=== PATIENT | female | born 1960 | race Caucasian/White ===

== ENCOUNTER 2017-03-02 11:45 | Emergency (ER) | payer MEDICAID ==
[~2017-03-02] VITALS: Ht 154.9 cm; Wt 54.0 kg
[2017-03-02] MEDS ORDERED: MIRTAZAPINE45 MG PO (12:04)
[2017-03-02] MEDS ORDERED: DIAZEPAM10 M1 PO (12:04)
[2017-03-02] MEDS ORDERED: VENTOLIN H0.09 MG/Ac IH (12:04)
[2017-03-02] MEDS ORDERED: ESCITALOPRAM20 MG PO (12:04)
[2017-03-02] MEDS ORDERED: CYCLOBENZAPRINE10 M1 PO (12:05)
[2017-03-02 12:25] LABS: HEMOGLOBIN 15.8 g/dL (12.2-16.2); LYMPH # 2.8 K/mm3 (0.7-4.5); LYMPH % 49.7 % (10-50.0)
--- NOTE | 2017-03-02 12:33 | Emergency Room Report ---
History of Present Illness Time Seen by 1214 Presenting Problem in Triage Pt arrived:Walked Presenting Problem:PT REPORTS DIFFICULTY BREATHING THAT HAS BEEN GOING ON SINCE DECEMBER OF THIS YEAR. PT STATES HAS BEEN SEEN AT [facility] TWICE AND WAS DIAGNOSED WITH BRONCHITIS AND TREATED WITH ANTIBIOTICS. 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 N Clinical Suspician of Infection? N Mental Status: 1 - Regular (Normal Baseline) Sepsis Risk:Low Sepsis Risk Have you (or family members/close friends) recently traveled outside the [place]? N If Yes, where/when: Have you had exposure to infectious disease within the past month? N TB? Other? Specify: Source patient, RN notes reviewed, family, RN/MD Exam Limitations no limitations Comment This is a 56-year-old female patient presenting to the emergency room with shortness of breath and nonproductive cough for the past 2-3 days. The patient has had multiple similar episodes in the past. She was seen twice at the [facility] over the past few months, prescribed Medrol Dosepak, Zyrtec, Ventolin MDI. Patient has quit smoking approximately 2 weeks ago. She denies any productive cough, chest pain, fever, recent travel or exposure to sick contacts. Patient has not been diagnosed with emphysema or asthma. ALLERGIES Coded Allergies: No Known Allergies (03/02/17) Home Medications Reported Medications Albuterol Sulfate (Ventolin Hfa) 0.09 MG IH Q4HP PRN SOA #18 Escitalopram Oxalate 20 MG PO DAILY #30 Mirtazapine 45 MG PO QHS #30 Diazepam 10 MG PO BID #75 Cyclobenzaprine Hcl 10 MG PO PRN PRN MUSCLE PAIN #60 History Medical History General CAD? No Angina: No [place]: No Hypertension? No Hyperlipidemia? Yes CHF? No DVT? No PE? No COPD? No Asthma? No Anemia? No GERD? No Gastric ulcers? No GI Bleed? No Hernia? No Thyroid Problems? No Hypothyroidism? No CVA? No Seizures? No Diabetes? No Renal Insuffiency? No End Stage Renal Disease? No UTI? No Stones? No GB Disease: No Nephritic Syndrome? No Asplenia? No Hepatitis? No Sickle Cell Disease? No Arthritis? No Migraines? No Cataracts? No Glaucoma? No MRSA? No HIV? No TB? No Anxiety? Yes Depression? No Cancer? No More? 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 No: respiratory distress. Lung Sounds anterior: wheezing. posterior: wheezing. bilateral: wheezing. 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 No Comment Upon reevaluation patient appears medically stable, clinically improving, minimally symptomatic. Advised patient that she has early stages of emphysema, was discharged home on steroids, antibiotics, same short-acting beta agonist. She will greatly benefit from introducing a steroid inhaler as well, Pulmicort. Patient advised to follow-up with digital associate, Dr. Leatha Sparks, at her earliest convenience. Results/Orders Laboratory Tests 03/02/17 1212: Lactic Acid 0.8 03/02/17 1212: Sodium 139, Potassium 4.0, Chloride 103, Carbon Dioxide 31, BUN 7, Creatinine 0.9, Estimated Creat Clear 59, Estimated GFR (MDRD) 65, Glucose 96, Calcium 8.8, Total Bilirubin 0.4, AST 23, ALT 24, Alkaline Phosphatase 133 H, Total Protein 6.7, Albumin 3.5, Globulin 3.2, Albumin/Globulin Ratio 1.1, WBC 5.6, RBC 4.64, Hgb 15.8, Hct 46.7, MCV 100.7 H, RDW 12.7, Plt Count 319, MPV 5.3 L, Gran % 34.6 L, Gran # 1.9, Lymphocytes % 49.7, Monocytes % 3.7, Eosinophils % 11.1, Basophils % 0.9, Lymphocytes # 2.8, Monocytes # 0.2, Eosinophils # 0.6 H, Basophils # 0.1, PUBS MCHC 33.7, MCH 33.9 H Current Medication Orders Sig/Karishma Start time Last Medication Dose Route Stop Time Status Admin Ceftriaxone Sodium 0 .STK-MED ONE 03/02 1304 DC IV Methylprednisolone 0 .STK-MED ONE 03/02 1304 DC Sodium Succinate .ROUTE Sodium Chloride 50 ML .STK-MED ONE 03/02 1304 DC IV Ceftriaxone Sodium 1 GM ONCE ONE 03/02 1245 DC 03/02 Sodium Chloride 50 ML IV 03/02 1314 1307 Methylprednisolone 125 MG ONCE ONE 03/02 1245 DC 03/02 Sodium Succinate IV 03/02 1246 1307 Sodium Chloride 1,000 ML .STK-MED ONE 03/02 1232 DC IV Albuterol/Ipratropium 3 ML ONCE ONE 03/02 1215 DC 03/02 INH 03/02 1216 1220 Sodium Chloride 10 ML PRN PRN 03/02 1215 DCD IV 03/03 1206 Sodium Chloride 1,000 ML .Q1H1M 03/02 1215 DC 03/02 IV 03/02 1315 1235 Sodium Chloride 10 ML PRN PRN 03/02 1215 DCD IV 03/03 1214 Orders Procedure Date/time Status RT REQUEST DUONEB 03/02 1206 Active IV SALINE LOCK 03/02 1206 Active CULTURE, BLOOD 03/02 1206 Active LACTIC ACID 03/02 1206 Complete CBC WITH AUTO DIFF 03/02 120 Complete CHEM 12 PROFILE 03/02 1206 Complete 12 LEAD EKG-BESSON (INITIAL) 03/02 UNK Active XRAY/CT/US XRAY/CT/US XRAY chest XR interpretation by reviewed by me Xray Results no infiltrates, normal heart size Departure Departure Time of Disposition 1240 Disposition DC Home or Self Care(routine) Clinical Impression Primary Impression: COPD with exacerbation Secondary Impressions: Acute exacerbation of chronic bronchitis Condition STABLE Referrals GODWIN DOHERTY,LEATHA Mccartney: Today after leaving ER Please call and schedule appointment Patient Instructions DI for Chronic Bronchitis, DI for Chronic Obstructive Pulmonary Disease Additional Instructions Please take the medications prescribed as directed, continue the Kobe DOHERTYI, follow-up with either the lung specialist in March as previously scheduled or with local digital associate, Dr. Leatha Sparks if able to see you sooner. Discharge Counseling Counseled pt/family regarding diagnosis, test results, medications/RX, home care, follow up needs Comment Please take the medications prescribed as directed, continue the Kobe MDI, follow-up with either the lung specialist in March as previously scheduled or with local digital associate, Dr. Leatha Sparks if able to see you sooner. Prescriptions Current Visit Scripts Methylprednisolone (Medrol Dose Saulo) 4 MG PO UD #1 SAULO TAKE DIRECTED ON PACKAGING Amoxicillin/Potassium Clav (Augmentin 875-125 Tablet) 1 EACH PO BID #20 TAB Budesonide (Pulmicort 90MCG Flexhaler) 2 PUFFS IH BID #1 INH Ref 2 ED Critical Care Critical Care No at 0142
--- NOTE | 2017-03-02 12:33 | Emergency Room Report ---
History of Present Illness Time Seen by 1214 Presenting Problem in Triage Pt arrived:Walked Presenting Problem:PT REPORTS DIFFICULTY BREATHING THAT HAS BEEN GOING ON SINCE DECEMBER OF THIS YEAR. PT STATES HAS BEEN SEEN AT [facility] TWICE AND WAS DIAGNOSED WITH BRONCHITIS AND TREATED WITH ANTIBIOTICS. 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 N Clinical Suspician of Infection? N Mental Status: 1 - Regular (Normal Baseline) Sepsis Risk:Low Sepsis Risk Have you (or family members/close friends) recently traveled outside the [place]? N If Yes, where/when: Have you had exposure to infectious disease within the past month? N TB? Other? Specify: Source patient, RN notes reviewed, family, RN/MD Exam Limitations no limitations Comment This is a 56-year-old female patient presenting to the emergency room with shortness of breath and nonproductive cough for the past 2-3 days. The patient has had multiple similar episodes in the past. She was seen twice at the [facility] over the past few months, prescribed Medrol Dosepak, Zyrtec, Ventolin MDI. Patient has quit smoking approximately 2 weeks ago. She denies any productive cough, chest pain, fever, recent travel or exposure to sick contacts. Patient has not been diagnosed with emphysema or asthma. ALLERGIES Coded Allergies: No Known Allergies (03/02/17) Home Medications Reported Medications Albuterol Sulfate (Ventolin Hfa) 0.09 MG IH Q4HP PRN SOA #18 Escitalopram Oxalate 20 MG PO DAILY #30 Mirtazapine 45 MG PO QHS #30 Diazepam 10 MG PO BID #75 Cyclobenzaprine Hcl 10 MG PO PRN PRN MUSCLE PAIN #60 History Medical History General CAD? No Angina: No [place]: No Hypertension? No Hyperlipidemia? Yes CHF? No DVT? No PE? No COPD? No Asthma? No Anemia? No GERD? No Gastric ulcers? No GI Bleed? No Hernia? No Thyroid Problems? No Hypothyroidism? No CVA? No Seizures? No Diabetes? No Renal Insuffiency? No End Stage Renal Disease? No UTI? No Stones? No GB Disease: No Nephritic Syndrome? No Asplenia? No Hepatitis? No Sickle Cell Disease? No Arthritis? No Migraines? No Cataracts? No Glaucoma? No MRSA? No HIV? No TB? No Anxiety? Yes Depression? No Cancer? No More? 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 No: respiratory distress. Lung Sounds anterior: wheezing. posterior: wheezing. bilateral: wheezing. 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 No Comment Upon reevaluation patient appears medically stable, clinically improving, minimally symptomatic. Advised patient that she has early stages of emphysema, was discharged home on steroids, antibiotics, same short-acting beta agonist. She will greatly benefit from introducing a steroid inhaler as well, Pulmicort. Patient advised to follow-up with commercial assistant, Dr. Leatha Sparks, at her earliest convenience. Results/Orders Laboratory Tests 03/02/17 1212: Lactic Acid 0.8 03/02/17 1212: Sodium 139, Potassium 4.0, Chloride 103, Carbon Dioxide 31, BUN 7, Creatinine 0.9, Estimated Creat Clear 59, Estimated GFR (MDRD) 65, Glucose 96, Calcium 8.8, Total Bilirubin 0.4, AST 23, ALT 24, Alkaline Phosphatase 133 H, Total Protein 6.7, Albumin 3.5, Globulin 3.2, Albumin/Globulin Ratio 1.1, WBC 5.6, RBC 4.64, Hgb 15.8, Hct 46.7, MCV 100.7 H, RDW 12.7, Plt Count 319, MPV 5.3 L, Gran % 34.6 L, Gran # 1.9, Lymphocytes % 49.7, Monocytes % 3.7, Eosinophils % 11.1, Basophils % 0.9, Lymphocytes # 2.8, Monocytes # 0.2, Eosinophils # 0.6 H, Basophils # 0.1, PUBS MCHC 33.7, MCH 33.9 H Current Medication Orders Sig/Karishma Start time Last Medication Dose Route Stop Time Status Admin Ceftriaxone Sodium 0 .STK-MED ONE 03/02 1304 DC IV Methylprednisolone 0 .STK-MED ONE 03/02 1304 DC Sodium Succinate .ROUTE Sodium Chloride 50 ML .STK-MED ONE 03/02 1304 DC IV Ceftriaxone Sodium 1 GM ONCE ONE 03/02 1245 DC 03/02 Sodium Chloride 50 ML IV 03/02 1314 1307 Methylprednisolone 125 MG ONCE ONE 03/02 1245 DC 03/02 Sodium Succinate IV 03/02 1246 1307 Sodium Chloride 1,000 ML .STK-MED ONE 03/02 1232 DC IV Albuterol/Ipratropium 3 ML ONCE ONE 03/02 1215 DC 03/02 INH 03/02 1216 1220 Sodium Chloride 10 ML PRN PRN 03/02 1215 DCD IV 03/03 1206 Sodium Chloride 1,000 ML .Q1H1M 03/02 1215 DC 03/02 IV 03/02 1315 1235 Sodium Chloride 10 ML PRN PRN 03/02 1215 DCD IV 03/03 1214 Orders Procedure Date/time Status RT REQUEST DUONEB 03/02 1206 Active IV SALINE LOCK 03/02 1206 Active CULTURE, BLOOD 03/02 1206 Active LACTIC ACID 03/02 1206 Complete CBC WITH AUTO DIFF 03/02 120 Complete CHEM 12 PROFILE 03/02 1206 Complete 12 LEAD EKG-BESSON (INITIAL) 03/02 UNK Active XRAY/CT/US XRAY/CT/US XRAY chest XR interpretation by reviewed by me Xray Results no infiltrates, normal heart size Departure Departure Time of Disposition 1240 Disposition DC Home or Self Care(routine) Clinical Impression Primary Impression: COPD with exacerbation Secondary Impressions: Acute exacerbation of chronic bronchitis Condition STABLE Referrals GODWIN DOHERTY,LEATHA Mccartney: Today after leaving ER Please call and schedule appointment Patient Instructions DI for Chronic Bronchitis, DI for Chronic Obstructive Pulmonary Disease Additional Instructions Please take the medications prescribed as directed, continue the Kobe DOHERTYI, follow-up with either the lung specialist in March as previously scheduled or with local commercial assistant, Dr. Leatha Sparks if able to see you sooner. Discharge Counseling Counseled pt/family regarding diagnosis, test results, medications/RX, home care, follow up needs Comment Please take the medications prescribed as directed, continue the Kobe MDI, follow-up with either the lung specialist in March as previously scheduled or with local commercial assistant, Dr. Leatha Sparks if able to see you sooner. Prescriptions Current Visit Scripts Methylprednisolone (Medrol Dose Saulo) 4 MG PO UD #1 SAULO TAKE DIRECTED ON PACKAGING Amoxicillin/Potassium Clav (Augmentin 875-125 Tablet) 1 EACH PO BID #20 TAB Budesonide (Pulmicort 90MCG Flexhaler) 2 PUFFS IH BID #1 INH Ref 2 ED Critical Care Critical Care No at 0149
[2017-03-02] MEDS ORDERED: MEDROL 4MG. DOSE4 MG PO (12:43)
[2017-03-02] MEDS ORDERED: AUGMENTIN 875-1 EACH PO (12:43)
[2017-03-02] MEDS ORDERED: PULMICORT90 MCG/ACT IH (12:44)
--- OUTSIDE RECORDS SUMMARY | 2017-03-02 12:49 | External Medical Summary Rpt ---
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 Unavailable Unavailable [facility], Un[facility] Unavailable [facility]available [facility] Unavailable [facility]available [facility], [facility] ZORIADA AMBROSE, Unavailable Unavailable ZORAIDA AMBROSE, Unavailable Unavailable ZORAIDA AMBROSE [facility] Unavailable Unavailable [facility], [facility] Unavailable Unavailable [facility] Unavailable Unavailable Purpose Continuity of Care Document - 11-10-2014 through 2016 Problems Code Diagnosis DOS Provider Status E559 VITAMIN D 01-02-2017 NEW DEFICIENCY [facility] UNSPECIFIED CLINIC [facility] E785 HYPERLIPIDE 01-02-2017 NEW AYAZ [facility] UNSPECIFIED CLINIC [facility] [id number] UNSPECIFIED 01-02-2017 NEW ASTHMA [facility] UNCOMPLICAT CLINIC [facility] ED R351 NOCTURIA 01-02-2017 NEW [facility] R7989 OTHER SPEC 01-02-2017 NEW ABNORMAL [facility] FINDINGS CLINIC [facility] BLOOD CHEMISTRY Z1231 ENCOUNTER 01-02-2017 NEW SCREENING [facility] MAMMO MALIG CLINIC [facility] NEOPLASM BREAST [id number] ULCERATIVE 05-18-2016 [facility] BLEPHARITIS JAM RIGHT UPPER EYELID [id number] OTHER 05-18-2016 [facility] CHORIORETIN JAM AL SCARS RIGHT EYE J329 CHRONIC 04-27-2016 [facility] J40 BRONCHITIS 04-27-2016 [facility] ACUTE OR CHRONIC Z1212 ENCOUNTER 02-24-2016 NEW SCREENING [facility] MALIGNANT CLINIC [facility] NEOPLASM RECTUM J0190 ACUTE 01-13-2016 NEW SINUSITIS [facility] UNSPECIFIED CLINIC PSC N939 ABNORMAL 12-21-[address] [facility] UTERINE & [facility] VAGINAL CLINIC PSC BLEEDING UNSPECIFIED Z0000 ENCOUNTER 12-18-2015 [facility] ADULT [facility] MED EXAM CLINIC [facility] W/O ABNORMAL FIND 18053 VITREOUS 05-13-2015 [facility] 7242 LUMBAGO 04-27-2015 [facility] V571 OTHER 04-27-2015 [facility] 2449 UNSPECIFIED 11-10-2014 [facility] HYPOTHYROID LABORATO ISM 2724 OTHER AND 11-10-2014 [facility] UNSPECIFIED [facility]IC [facility] HYPERLIPIDE AYAZ 2859 UNSPECIFIED 11-10-2014 [facility] ANEMIA [facility]INIC [facility] V5869 LONG-TERM 11-10-2014 [facility] (CURRENT) CLINIC USE OF LABORATO OTHER MEDICATIONS V700 ROUTINE 11-10-2014 [facility] PSC EXAM@HEALTH CARE FACL V7612 OTHER 11-10-2014 NEW SCREENING [facility] MAMMOGRAM CLINIC PSC V762 SCREENING 11-10-2014 [facility] FOR CLINIC MALIGNANT LABORATO NEOPLASM OF THE CERVIX Allergies, Adverse Reactions, Alerts Clinical Alert Notifications Alert Asthma: absence of controller with h/o SA beta agonist Asthma: no influenza vaccine in the last 365 days Medications Na ND Rx Da Fi Fi Am Da Di Ph RX Ph St me C No te ll ll ou ys ag ar # ys at rm s nt no ma ic us Or Da si cy ia de te s n re d DI 00 03 04 75 30 00 EA Ac AZ 17 -1 -[address] ti EP 23 4- 7- 00 00 SI ve AM 92 20 20 47 DE 77 17 17 96 10 0 66 PH AR MG MA CY TA BL OF ET CY NT HI AN A IN C ES 65 03 04 30 30 00 EA Ac CI 86 -1 -[address] ti TA 20 4- 7- 00 00 SI ve LO 37 20 20 46 DE MD 50 17 17 94 AM 1 21 PH AR 20 MA CY MG OF TA CY BL NT ET HI AN A IN C AK 00 03 04 30 30 00 EA Ac RT 09 -1 -[address] ti AZ 37 4- 7- 00 00 SI ve AP 20 20 20 46 DE IN 85 17 17 94 E 6 22 PH 45 AR MA MG CY TA OF BL CY ET NT HI AN A IN C AM 16 03 04 20 10 00 EA Ac OX 71 -1 -[address] ti IC 40 8- 7- 00 00 SI ve IL 29 20 20 48 DE LI 90 17 17 02 N 4 56 PH 50 AR 0 MA MG CY CA OF PS CY UL NT E HI AN A IN C MD 00 03 04 10 5 00 EA Ac ED 59 -1 -[address] ti NI 15 8- 7- 00 00 SI ve SO 44 20 20 48 DE NE 30 17 17 02 1 57 PH 20 AR MA MG CY TA OF BL CY ET NT HI AN A IN C BE 65 03 04 21 7 00 EA Ac NZ 16 -1 -[address] ti ON 20 8- 7- 00 SI ve AT 53 20 20 48 DE AT 75 17 17 02 E 0 58 PH 20 AR 0 MA MG CY CA OF PS CY UL NT E HI AN A IN C VE 00 03 03 18 18 00 EA Ac NT 17 -1 -[address] ti OL 30 1- 1- 00 SI ve IN 68 20 20 45 DE 22 17 17 76 HF 0 10 PH A AR 90 MA CY MC G OF IN CY STERLING NT LE HI R AN A IN C CE 16 03 03 30 30 00 EA Ac TI 71 -1 -[address] ti RI 40 1- 1- 00 00 SI ve ZI 27 20 20 46 DE NE 10 17 17 23 3 63 PH HC AR L MA 10 CY MG OF CY TA NT BL HI ET AN A IN C DI 00 02 03 75 30 00 EA Ac AZ 17 -1 -[address] ti EP 23 2- 0- 00 00 SI ve AM 92 20 20 46 DE 77 17 17 85 10 0 92 PH AR MG MA CY TA BL OF ET CY NT HI AN A IN C CY 00 02 03 60 30 00 EA Ac CL 37 -1 -[address] ti OB 80 2- 0- 00 00 SI ve EN 75 20 20 47 DE ZA 11 17 17 19 MD 0 49 PH IN AR E MA 10 CY MG OF CY TA NT BL HI ET AN A IN C VE 00 02 03 18 18 00 EA Ac NT 17 -1 -[address] ti OL 30 2- 0- 00 00 SI ve IN 68 20 20 45 DE 22 17 17 76 HF 0 10 PH A AR 90 MA CY MC G OF IN CY STERLING NT LE HI R AN A IN C AK 00 02 03 30 30 00 EA Ac RT 09 -1 -[address] ti AZ 37 5- 0- 00 00 SI ve AP 20 20 20 46 DE IN 85 17 17 94 E 6 22 PH 45 AR MA MG CY TA OF BL CY ET NT HI AN A IN C ES 65 02 03 30 30 00 EA Ac CI 86 -1 -[address] ti TA 20 5- 0- 00 00 SI ve LO 37 20 20 46 DE MD 50 17 17 94 AM 1 21 PH AR 20 MA CY MG OF TA CY BL NT ET HI AN A IN C RA 53 01 02 60 30 00 EA Ac NI 74 -2 -[address] ti TI 60 9- 4- 00 00 SI ve DI 25 20 20 46 DE NE 30 17 17 50 5 09 PH 15 AR 0 MA MG CY TA OF BL CY ET NT HI AN A IN C AK 00 02 30 30 00 EA Ac RT 09 -1 -[address] ti AZ 37 9- 7- 00 00 SI ve AP 20 20 20 46 DE IN 85 17 17 94 E 6 22 PH 45 AR MA MG CY TA OF BL CY ET NT HI AN A IN C ES 65 01 02 30 30 00 EA Ac CI 86 -1 -[address] ti TA 20 9- 7- 00 00 SI ve LO 37 20 20 46 DE MD 50 17 17 94 AM 1 21 PH AR 20 MA CY MG OF TA CY BL NT ET HI AN A IN C VE 00 01 02 18 18 00 EA Ac NT 17 -1 -[address] ti OL 30 0- 3- 00 00 SI ve IN 68 20 20 45 DE 22 17 17 76 HF 0 10 PH A AR 90 MA CY MC G OF IN CY STERLING NT LE HI R AN A IN C CE 16 02 30 30 00 EA Ac TI 71 -1 -[address] ti RI 40 0- 3- 00 00 SI ve ZI 27 20 20 46 DE NE 10 17 17 23 3 63 PH HC AR L MA 10 CY MG OF CY TA NT BL HI ET AN A IN C CY 00 01 02 60 30 00 EA Ac CL 37 -1 -[address] ti OB 80 1- 3- 00 00 SI ve EN 75 20 20 47 DE ZA 11 17 17 19 MD 0 49 PH IN AR E MA 10 CY MG OF CY TA NT BL HI ET AN A IN C DI 00 01 02 75 30 00 EA Ac AZ 17 -1 -[address] ti EP 23 1- 3- 00 00 SI ve AM 92 20 20 46 DE 77 17 17 85 10 0 92 PH AR MG MA CY TA BL OF ET CY NT HI AN A IN C ES 65 12 01 30 30 00 EA Ac CI 86 -1 -[address] ti TA 20 9- 3- 00 00 SI ve LO 37 20 20 46 DE MD 50 16 17 94 AM 1 21 PH AR 20 MA CY MG OF TA CY BL NT ET HI AN A IN C AK 00 12 01 30 30 00 EA Ac RT 09 -1 -[address] ti AZ 37 9- 3- 00 00 SI ve AP 20 20 20 46 DE IN 85 16 17 94 E 6 22 PH 45 AR MA MG CY TA OF BL CY ET NT HI AN A IN C BR 60 12 01 18 3 00 EA Ac OM 43 -2 -[address] ti PH 20 2- 3- 00 00 SI ve EN 27 20 20 0 46 DE IR 51 16 17 99 -P 6 45 PH SE AR UD MA OE CY PH ED OF -D CY M NT SY HI R AN A IN C VE 00 12 01 18 18 00 EA Ac NT 17 -1 -[address] ti OL 30 1- 9- 00 00 SI ve IN 68 20 20 45 DE 22 16 17 76 HF 0 10 PH A AR 90 MA CY MC G OF IN CY STERLING NT LE HI R AN A IN C DI 00 12 01 75 30 00 EA Ac AZ 17 -1 -[address] ti EP 23 2- 9- 00 00 SI ve AM 92 20 20 46 DE 77 16 17 85 10 0 92 PH AR MG MA CY TA BL OF ET CY NT HI AN A IN C Procedures Procedure DOS Code Location Performer Comment 79118 [facility] HYDROXY 7 CLINIC CLINIC INCLUDES LABORATO LABORATO FRACTIONS IF PERFORMED COMPREHEN 04180 [facility] SIVE 7 CLINIC CLINIC METABOLIC LABORATO LABORATO PANEL RADIOLOGI 08463 [facility] EXAM 7 [facility] CHEST 2 CLINIC VIEWS PSC FRONTAL&L ATERAL SCREENING G0202 [address] MAMMOGRAP CLINIC HY MARIO ALBERTO PSC INCL CAD WHEN PERFORMD CHOLESTER 97298 [facility] OL 7 CLINIC CLINIC SERUM/WHO LABORATO LABORATO LE BLOOD TOTAL DETERMINA 73176 [facility] [place] TION 6 JAM JAM REFRACTIV E STATE OPHTHALMO 74997 [facility] [place] SCPY 6 JAM JAM EXTENDED RETINAL DRAWING I&R 1ST BLOOD 29516 RADHA TAD OCCULT 6 [facility] NON[facility] FECAL HGB CLINIC DETER IA PSC QUAL FECES 1-[place] [address] [facility] MAXILLOFA 6 [facility] CIAL W/[place] [address] [facility] [facility] 6 CLINIC CLINIC SE LABORATO [place]OR[place] [address] [facility] [address] NEW BEITING TRANSVAGI 6 [facility] CLA NAL CLINIC PSC COMPUTER- 34669 [facility] AIDED 6 [facility] DETECTION CLINIC PSC SCREENING MAMMOGRAP HY URNLS DIP 05508 RAD[facility] 6 [facility] NONA STICK/TAB CLINIC LET RGNT PSC NON-AUTO W/O MICRSCP SCREENING G020[address] MAMMOGRAP CLINIC HY MARIO ALBERTO PSC INCL CAD WHEN PERFORMD BLOOD 17045 RADHA TAD OCCULT 5 [place] NONA FECAL HGB CLINIC DETER IA PSC QUAL FECES 1-3 APPL 32252 [facility] MODALITY 5 [facility] 1/> AREAS INC INC ULTRASOUN D EA 15 MIN APPLICATI 23905 [facility] ON 5 [facility] MODALITY INC INC 1/> AREAS HOT/COLD PACKS THERAPEUT 12408 [facility] IC PX 1/> 5 MEM HOS[facility]OS[facility] AREAS INC INC EACH 15 MIN EXERCISES E-STIM G0283 [facility]SO 1/> AREAS 5 MEM H[facility] MEM [facility]OS[facility] OTH THAN INC INC WND CARE PART TX PLAN DETERMINA 68734 [place] [facility] [facility] E STATE P[facility] OPHTHALMO 29073 [place] SCPY 5 [facility], RETINAL P.S.C. DRAWING I&R 1ST APPLICATI 23673 [facility] R[facility]SO ON 5 [facility] MODALITY INC INC 1/> AREAS HOT/COLD PACKS APPL 89768 [facility] MODALITY 5 [facility] 1/> AREAS INC INC ULTRASOUN D EA 15 MIN THERAPEUT 13530 [facility] R[facility]SO IC PX 1/> 5 [facility]OS[facility] AREAS INC INC EACH 15 MIN EXERCISES E-STIM G0283 [facility]SO 1/> AREAS 5 MEM H[facility] MEM HOSP OTH THAN INC INC WND CARE PART TX PLAN E-STIM G0283 [facility]SO 1/> AREAS 5 MEM H[facility] MEM HOSP OTH THAN INC INC WND CARE PART TX PLAN THERAPEUT 27022 [facility] RUSSO IC PX 1/> 5 [facility]OS[facility] AREAS INC INC EACH 15 MIN EXERCISES APPL 69329 [facility] R[facility]SO MODALITY 5 [facility]OS[facility] 1/> AREAS INC INC ULTRASOUN D EA 15 MIN APPLICATI 46607 [facility] RUSSO ON 5 [facility] H[facility] MEM [facility]OS[facility] MODALITY INC INC 1/> AREAS HOT/COLD PACKS APPLICATI 45351 [facility] RUSSO ON 5 [facility] HOS[facility] MODALITY INC INC 1/> AREAS HOT/COLD PACKS THERAPEUT 15577 [facility] R[facility]SO IC PX 1/> 5 [facility]OS[facility] AREAS INC INC EACH 15 MIN EXERCISES APPL 73529 [facility] R[facility] MODALITY 5 [facility]OSP 1/> AREAS INC INC ULTRASOUN D EA 15 MIN E-STIM G0283 [facility]SO 1/> AREAS 5 MEM HOS[facility] MEM HOSP OTH THAN INC INC WND CARE PART TX PLAN E-STIM G0283 [facility] R[facility]SO 1/> AREAS 5 [facility]OS[facility] OTH THAN INC INC WND CARE PART TX PLAN APPL 40583 K[facility] RUSSO MODALITY 5 [facility]OS[facility] 1/> AREAS INC INC ULTRASOUN D EA 15 MIN THERAPEUT 29019 [facility] RUSSO IC PX 1/> 5 MEM HOS[facility] HOSP AREAS INC INC EACH 15 MIN EXERCISES APPLICATI 77528 [facility] RUSSO ON 5 MEM HOS[facility] MEM [facility]OSP MODALITY INC INC 1/> AREAS HOT/COLD PACKS PHYSICAL 43395 KARAN KARAN THERAPY 5 MEM HOS[facility] MEM [facility]OS[facility] EVALUATIO INC INC N OPHTHALMO 15725 [place] JOYY 5 [facility], RETINAL P.S.C. DRAWING I&R 1ST DETERMINA 80590 [place] PINEDA 5 [facility] E STATE P[facility] RADEX [address] LUMBOSACR CLINIC AL PSC MINIMUM 4 VIEWS COLLECTIO 83657 [facility] N VENOUS 5 CLINIC CLINIC BLOOD LABORATO LABORATO VENIPUNCT URE CYTP C/V 63185 [facility] AUTO THIN 5 CLINIC CLINIC LYR LABORATO LABORATO PREPJ SCR MNL RESCR PHYS GENERAL 90792 [facility] 5 CLINIC CLINIC PANEL LABORATO LABORATO COMPUTER- [address] FUNMI DETECTION CLINIC PSC SCREENING MAMMOGRAP HY SCREENING G020[address] MAMMOGRAP CLINIC HY MARIO ALBERTO PSC INCL CAD WHEN PERFORMD LIPID 90919 [facility] PANEL 5 CLINIC CLINIC LABORATO LABORATO URNLS DIP [address] [place] [address] CLINIC CLINIC STICK/TAB LABORATO LABORATO LET REAGENT AUTO MICROSCOP Y Encounters Encounter Start End Date Code Location Performer Type Date OFFICE 86411 RADHA MISHRA OUTPATIEN 7 7 [facility] VISIT CLINIC 25 PSC MINUTES OFFICE 60053 [place] ZORAIDA OUTPATIEN 6 6 HALIE AMBROSE T VISIT 40 MINUTES OFFICE 06494 [facility] OUTPATIEN 6 6 [facility] V[facility] HOSPITAL 15 MINUTES OFFICE 06869 RADHA MISHRA OUTPATIEN 6 6 [facility] T VISIT CLINIC 15 PSC MINUTES OFFICE 41850 RADHA BEFRANCK OUTPATIEN 6 6 [facility] CLA T NEW 20 CLINIC MINUTES PSC PERIODIC 41765 RADHA MISHRA PREVENTIV 6 6 [facility] NOAN E MED EST CLINIC PATIENT PSC 40-64YRS OFFICE 60363 [place] OUTPATIEN 5 5 [facility], 25 P[facility] MINUTES HOSPITAL KARAN - 5 5 [facility] 00886 [place] OUTPATIEN 5 5 [facility] J[facility] T [address], MINUTES P.S.C. PERIODIC 22171 [facility] EST [facility]IN[facility] PATIENT PSC [id number]
--- OUTSIDE RECORDS SUMMARY | 2017-03-02 12:49 | External Medical Summary Rpt ---
Author Author , Organization [employer] Address Unknown Phone Unavailable Care Team Providers Care Special Agent Group Insurance Name Role Phone BEITING CLA, BEITING Unavailable Unavailable CLA HERACLIO, HERACLIO Unavailable Unavailable MIR CAREY, Unavailable Unavailable TAD NEWSOME Unavailable Unavailable TAD CASTELLANO, Unavailable Unavailable TAD CASTELLANO [facility] Unavailable Unavailable INC, [facility] Unavailable [facility]available [facility], [facility], [facility] Unavailable Unavailable [facility], Unavailable Unavailable [facility] Unavailable [facility]available [facility] Unavailable [facility]available [facility] ZORAIDA AMBROSE, Unavailable Unavailable ZORAIDA AMBROSE, Unavailable Unavailable ZORAIDA AMBROSE [facility] Unavailable Unavailable [facility] Unavailable Unavailable [facility] Unavailable Unavailable Purpose Continuity of Care Document - 11-10-2014 through 2016 Problems Code Diagnosis DOS Provider Status E559 VITAMIN D 01-02-2017 NEW DEFICIENCY [facility]IED [facility] E785 HYPERLIPIDE 01-02-2017 NEW AYAZ [facility]PEC[facility]IED [facility] X50338 UNSPECIFIED 01-02-2017 NEW ASTHMA [facility] UNCOMPLICAT [facility] ED R351 NOCTURIA 01-02-2017 NEW [facility] R7989 OTHER SPEC 01-02-2017 NEW ABNORMAL [facility] FINDINGS [facility] BLOOD CHEMISTRY Z1231 ENCOUNTER 01-02-2017 NEW SCREENING [facility] MAMMO MALIG [facility]IN[facility] NEOPLASM BREAST I82055 ULCERATIVE 05-18-2016 [facility] BLEPHARITIS JAM RIGHT UPPER EYELID A58098 OTHER 05-18-2016 [facility] CHORIORETIN JAM AL SCARS RIGHT EYE J329 CHRONIC 04-27-2016 [facility] J40 BRONCHITIS 04-27-2016 [facility] ACUTE OR CHRONIC Z1212 ENCOUNTER 02-24-2016 NEW SCREENING [facility] MALIGNANT [facility] NEOPLASM RECTUM J0190 ACUTE 01-13-2016 NEW SINUSITIS [facility] UNSPECIFIED CLINIC PSC N939 ABNORMAL 12-21-2015 [facility] UTERINE & [facility] VAGINAL CLINIC PSC BLEEDING UNSPECIFIED Z0000 ENCOUNTER 12-18-2015 [facility] ADULT [facility] MED EXAM [facility] W/O ABNORMAL FIND 05853 VITREOUS 05-13-2015 [facility] 7242 LUMBAGO 04-27-2015 [facility] V571 OTHER 04-27-2015 [facility] 2449 UNSPECIFIED 11-10-2014 [facility] CLINIC HYPOTHYROID LABORATO ISM 2724 OTHER AND 11-10-2014 [facility] UNSPECIFIED CLINIC LABORATO HYPERLIPIDE AYAZ 2859 UNSPECIFIED 11-10-2014 [facility] ANEMIA [facility]INIC LABORATO V5869 LONG-TERM 11-10-2014 [facility] (CURRENT) CLINIC USE OF LABORATO OTHER MEDICATIONS V700 ROUTINE 11-10-2014 [facility] PSC EXAM@HEALTH CARE FACL V7612 OTHER 11-10-2014 NEW SCREENING [facility] MAMMOGRAM CLINIC PSC V762 SCREENING 11-10-2014 [facility] FOR CLINIC MALIGNANT LABORATO NEOPLASM OF THE [...] ve LO 37 20 20 46 DE DC 50 17 17 94 AM 1 21 PH AR 20 MA CY MG OF TA CY BL NT ET HI AN A IN C WY 00 03 04 30 30 00 EA [...] NT E HI AN A IN C DC 00 03 04 10 5 00 EA [...] 47 DE ZA 11 17 17 19 DC 0 49 PH IN AR E MA [...] LE HI R AN A IN C WY 00 02 03 30 30 00 EA [...] ve LO 37 20 20 46 DE DC 50 17 17 94 AM 1 21 [...] ET NT HI AN A IN C WY 00 02 30 30 00 EA Ac [...] ve LO 37 20 20 46 DE DC 50 17 17 94 AM 1 21 [...] 47 DE ZA 11 17 17 19 DC 0 49 PH IN AR E MA [...] ve LO 37 20 20 46 DE DC 50 16 17 94 AM 1 21 PH AR 20 MA CY MG OF TA CY BL NT ET HI AN A IN C WY 00 12 01 30 30 00 EA [...] Procedures Procedure DOS Code Location Performer Comment 26119 [facility] HYDROXY 7 CLINIC CLINIC INCLUDES LABORATO LABORATO FRACTIONS IF PERFORMED COMPREHEN 88069 [facility] SIVE 7 CLINIC CLINIC METABOLIC LABORATO LABORATO PANEL RADIOLOGI 31171 [facility] EXAM 7 [facility] CHEST 2 CLINIC VIEWS PSC FRONTAL&L ATERAL SCREENING G0202 [address] MAMMOGRAP CLINIC HY MARIO ALBERTO PSC INCL CAD WHEN PERFORMD CHOLESTER 81613 [facility] OL 7 CLINIC CLINIC SERUM/WHO LABORATO LABORATO LE BLOOD TOTAL DETERMINA 82190 [facility] [place] TION 6 JAM JAM REFRACTIV E STATE OPHTHALMO 52383 [facility] SCPY 6 JAM JAM EXTENDED RETINAL DRAWING I&R 1ST BLOOD 58719 [facility] TAD OCCULT 6 [facility] DETER IA PSC QUAL FECES 1-[place] [address] [facility] MAXILLOFA 6 [facility] CIAL W/[place] [address] [facility] CLINIC CLINIC SE LABORATO LABORAT[place] [address] [facility] [place] [address] NEW BEITING TRANSVAGI 6 [facility] CLA NAL CLINIC PSC COMPUTER- 89870 [facility] AIDED 6 [facility] DET[facility]CTION [facility] PSC SCREENING MAMMOGRAP HY URNLS DIP 00490 RADHA [facility] 6 ANCON[facility] NONA STICK/TAB CLINIC LET RGNT PSC NON-AUTO W/O MICRSCP SCREENING G020[address] MAMMOGRAP CLINIC HY MARIO ALBERTO PSC INCL CAD WHEN PERFORMD BLOOD 89249 RADHA TAD OCCULT 5 [place] NONA FECAL HGB CLINIC DETER IA PSC QUAL FECES 1-3 APPL 88937 [facility] MODALITY 5 [facility] 1/> AREAS INC INC ULTRASOUN D EA 15 MIN APPLICATI 77905 [facility] R[facility]SO ON 5 [facility] MODALITY INC INC 1/> AREAS HOT/COLD PACKS THERAPEUT 98165 [facility] R[facility] IC PX 1/> 5 [facility] AREAS INC INC EACH 15 MIN EXERCISES E-STIM G0283 [facility] R[facility]SO 1/> AREAS 5 [facility] MEM HOSP OTH THAN INC INC WND CARE PART TX PLAN DETERMINA 37896 [place] PINEDA 5 [facility] P[facility] OPHTHALMO 97997 [place] SCPY 5 [facility], RETINAL P.S.C. DRAWING I&R 1ST APPLICATI 21459 [facility] R[facility]SO ON 5 [facility] MODALITY INC INC 1/> AREAS HOT/COLD PACKS APPL 85772 [facility] RUSSO MODALITY 5 [facility] 1/> AREAS INC INC ULTRASOUN D EA 15 MIN THERAPEUT 41854 [facility] R[facility] IC PX 1/> 5 [facility]OS[facility] AREAS INC INC EACH 15 MIN EXERCISES E-STIM G0283 [facility]SO 1/> AREAS 5 [facility] MEM HOSP OTH THAN INC INC WND CARE PART TX PLAN E-STIM G0283 [facility] 1/> AREAS 5 MEM [facility] MEM HOSP OTH THAN INC INC WND CARE PART TX PLAN THERAPEUT 50491 [facility] R[facility]SO IC PX 1/> 5 [facility]OS[facility] AREAS INC INC EACH 15 MIN EXERCISES APPL 59586 [facility] R[facility]SO MODALITY 5 [facility]OS[facility] 1/> AREAS INC INC ULTRASOUN D EA 15 MIN APPLICATI 17590 [facility] RUSSO ON 5 [facility] MEM [facility]OS[facility] MODALITY INC INC 1/> AREAS HOT/COLD PACKS APPLICATI 88659 [facility] RUSSO ON 5 [facility] MODALITY INC INC 1/> AREAS HOT/COLD PACKS THERAPEUT 20426 [facility] R[facility]SO IC PX 1/> 5 [facility]OS[facility] AREAS INC INC EACH 15 MIN EXERCISES APPL 27454 [facility] RUSSO MODALITY 5 [facility]OS[facility] 1/> AREAS INC INC ULTRASOUN D EA 15 MIN E-STIM G0283 [facility] R[facility]SO 1/> AREAS 5 MEM H[facility] MEM HOSP OTH THAN INC INC WND CARE PART TX PLAN E-STIM G0283 [facility] R[facility] 1/> AREAS 5 [facility] H[facility] MEM HOSP OTH THAN INC INC WND CARE PART TX PLAN APPL 22084 [facility] RUSSO MODALITY 5 [facility]/> AREAS INC INC ULTRASOUN D EA 15 MIN THERAPEUT 26885 KARAN RUSSO IC PX 1/> 5 [facility] INC INC EACH 15 MIN EXERCISES APPLICATI 52047 [facility]USSO ON 5 [facility] MODALITY INC INC 1/> AREAS HOT/COLD PACKS PHYSICAL 04832 K[facility]AN KARAN THERAPY 5 [facility] EVALUATIO INC INC N OPHTHALMO 30976 [facility] [facility] DRAWING I&R 1ST DETERMINA 25075 [facility] PINEDA [facility] RADEX [address] [facility] CLIN[facility] AL PSC MINIMUM 4 VIEWS COLLECTIO 92063 [facility] N VENOUS 5 CLINIC CLINIC BLOOD [facility]OR[facility]O LAB[facility]ATO VENIPUNCT URE CYTP C/V 63098 [facility] AUTO THIN 5 CLINIC CLINIC LYR [facility] LAB[facility] PREPJ SCR MNL RESCR PHYS GENERAL 04316 [facility] 5 CLINIC CLINIC PANEL LABORATO LABORATO COMPUTER- [address] FUNMI DETECTION CLINIC PSC SCREENING MAMMOGRAP HY SCREENING G020[address] MAMMOGRAP CLINIC HY MARIO ALBERTO PSC INCL CAD WHEN PERFORMD LIPID 48149 [facility] PANEL 5 CLINIC CLINIC LABORATO LABORATO URNLS DIP [address] [place] [address] CLINIC CLINIC STICK/TAB LABORATO LABORATO LET REAGENT AUTO MICROSCOP Y Encounters Encounter Start End Date Code Location Performer Type Date OFFICE 40015 RADHA MISHRA OUTPATIEN 7 7 [facility] VISIT [facility]INIC 25 PSC MINUTES OFFICE 10447 [place] ZORAIDA OUTPATIEN 6 6 HALIE AMBROSE T VISIT 40 MINUTES OFFICE 43800 KARAN HESTER OUTPATIEN 6 6 [facility] 15 MINUTES OFFICE 44241 RADHA MISHRA OUTPATIEN 6 6 [facility] V[facility] 15 PSC MINUTES OFFICE 15412 RADHA BEFRANCK [facility]PATIEN 6 6 [facility] PSC PERIODIC 06793 RADHA MISHRA PREVENTIV 6 6 ANCONA NONA E MED EST CLINIC PATIENT PSC 40-64YRS OFFICE 90644 [place] OUTPATIEN 5 5 [facility] C[facility], 25 [facility] MINUTES HOSPITAL KARAN - 5 5 [facility] 91333 [place] [place] OUTPATIEN 5 5 [facility] T [address], MINUTES P.S[facility] PERIODIC 54169 [facility] 5 [facility] EST CLINIC PATIENT PSC [id number]
--- OUTSIDE RECORDS SUMMARY | 2017-03-02 12:51 | External Medical Summary Rpt ---
Author Author JANY Moura, JANY Moura Organization [employer] Address Unknown Phone Unavailable
--- OUTSIDE RECORDS SUMMARY | 2017-03-02 12:51 | External Medical Summary Rpt ---
Author Author , Organization [employer] Address Unknown Phone Unavailable Care Team Providers Care Master Planner Name Role Phone BEITING CLA, BEITING Unavailable Unavailable CLA HERACLIO, HERACLIO Unavailable Unavailable MIR CAREY, Unavailable Unavailable TAD NEWSOME Unavailable Unavailable TAD CASTELLANO, Unavailable Unavailable TAD CASTELLANO [facility] Unavailable Unavailable INC, [facility] Unavailable Unavailable HOSPITAL, [facility], [facility] Unavailable Unavailable [facility], Unavailable Unavailable [facility] Unavailable Unavailable LABORATO, [facility] Un[facility]available [facility], [facility] ZORAIDA AMBROSE, Unavailable Unavailable ZORAIDA AMBROSE, Unavailable Unavailable ZORAIDA AMBROSE [facility] Unavailable [facility]available [facility] Unavailable Unavailable [facility], [facility] Unavailable Unavailable Purpose Continuity of Care Document - 11-10-2014 through 2016 Problems Code Diagnosis DOS Provider Status E559 VITAMIN D 01-02-2017 NEW DEFICIENCY [place] [facility] E785 HYPERLIPIDE 01-02-2017 NEW AYAZ [place] [facility] [id number] UNSPECIFIED 01-02-2017 NEW ASTHMA [place] UNCOMPLICAT [facility] ED R351 NOCTURIA 01-02-2017 [facility] R7989 OTHER SPEC 01-02-2017 NEW ABNORMAL [place] [facility] BLOOD CHEMISTRY Z1231 ENCOUNTER 01-02-2017 NEW SCRE[facility]ING [place] MAMMO MALIG [facility] NEOPLASM BREAST [id number] ULCERATIVE 05-18-2016 [facility] BLEPHARITIS JAM RIGHT UPPER EYELID [id number] OTHER 05-18-2016 [place] CHORIORETIN JAM AL SCARS RIGHT EYE J329 CHRONIC 04-27-2016 [facility] J40 BRONCHITIS 04-27-2016 [facility] ACUTE OR CHRONIC Z1212 ENCOUNTER 02-24-2016 NEW SCREENING [place] [facility]IG[facility]NT [facility] NEOPLASM RECTUM J0190 ACUTE 01-13-2016 NEW SINUSITIS [place] [facility]NSPECIFIED [facility] N939 ABNORMAL 12-21-2015 [facility] PSC BLEEDING UNSPECIFIED Z0000 ENCOUNTER 12-18-2015 NEW GEN ADULT [place] MED EXAM [facility]INIC PSC W/O ABNORMAL FIND 91907 VITREOUS 05-13-2015 [facility] 7242 LUMBAGO 04-27-2015 [facility] V571 OTHER 04-27-2015 [facility] 2449 UNSPECIFIED 11-10-2014 [facility] HYPOTHYROID LABORATO ISM 2724 OTHER AND 11-10-2014 [facility]NSPECIFIED [facility] HYPERLIPIDE AYAZ 2859 UNSPECIFIED 11-10-2014 [facility] ANEMIA [facility] V5869 LONG-TERM 11-10-2014 [facility] (CURRENT) [facility]INIC USE OF LABORATO OTHER MEDICATIONS V700 ROUTINE 11-10-2014 [facility] PSC [email or web address]@[email or web address] CARE FACL V7612 OTHER 11-10-2014 NEW SCRE[facility]ING [place] MAMMOGRAM CLINIC PSC V762 SCREENING 11-10-2014 [place] FOR [facility]INIC MALIGNANT LABORATO NEOPLASM OF THE CERVIX Medications Na ND Rx Da Fi Fi Am Da Di Ph RX Ph St me C No te ll ll ou ys ag ar # ys at rm s nt no ma ic us Or Da si cy ia de te s n re d AM 16 03 04 20 10 00 EA Ac OX 71 -1 -[address] ti IC 40 8- 7- 00 00 SI ve IL 29 20 20 48 DE LI 90 17 17 02 N 4 56 PH 50 AR 0 MA MG CY CA OF PS CY UL NT E HI AN A IN C CO 00 03 04 10 5 00 EA [...] ST ti ON 20 8- 7- 00 00 SI ve AT 53 20 20 48 DE AT 75 17 17 02 E 0 58 PH 20 AR 0 MA MG CY CA OF PS CY UL NT E HI AN A IN C DI 00 03 04 75 30 00 [...] ve LO 37 20 20 46 DE CO 50 17 17 94 AM 1 21 PH AR 20 MA CY MG OF TA CY BL NT ET HI AN A IN C [place] 00 03 04 30 30 00 EA Ac RT 09 -1 -[address] ti AZ 37 4- 7- 00 00 SI ve AP 20 20 20 46 DE IN 85 17 17 94 E 6 22 PH 45 AR MA MG CY TA OF BL CY ET NT HI AN A IN C VE 00 03 03 18 18 00 EA Ac NT 17 -1 -[address] ti OL 30 1- 1- 00 00 SI ve IN 68 20 [...] 47 DE ZA 11 17 17 19 CO 0 49 PH IN AR E MA [...] LE HI R AN A IN C [place] 00 02 03 30 30 00 EA [...] ve LO 37 20 20 46 DE CO 50 17 17 94 AM 1 21 [...] ET NT HI AN A IN C [place] 00 01 02 30 30 00 EA Ac RT [...] ve LO 37 20 20 46 DE CO 50 17 17 94 AM 1 21 [...] R AN A IN C CE 16 01 02 30 30 00 EA Ac TI [...] 47 DE ZA 11 17 17 19 CO 0 49 PH IN AR E MA [...] ve LO 37 20 20 46 DE CO 50 16 17 94 AM 1 21 PH AR 20 MA CY MG OF TA CY BL NT ET HI AN A IN C [place] 00 12 01 30 30 00 EA [...] Procedures Procedure DOS Code Location Performer Comment CHOLESTER [address] [facility] OL 7 CLINIC CLINIC SERUM/WHO LAB[facility]ATO LABORATO LE BLOOD TOTAL SCREENING G0202 [address] MAMMOGRAP CLINIC HY MARIO ALBERTO PSC INCL CAD WHEN PERFORMD RADIOLOGI 62033 [facility] EXAM 7 [place] CHEST 2 CLINIC VIEWS PSC FRONTAL&L ATERAL COMPREHEN [address] [facility] SIVE 7 CLINIC CLINIC METABOLIC LABORATO LABORATO PANEL [address] [facility] HYDROXY 7 CLINIC CLINIC INCLUDES LABORATO LABORATO FRACTIONS IF PERFORMED OPHTHALMO 45944 [facility] [place] SCPY 6 JAM JAM EXTENDED RETINAL DRAWING I&R 1ST DETERMINA 35140 [facility] [place] TION 6 JAM JAM REFRACTIV E STATE BLOOD 05110 NEW TAD OCCULT 6 [place] NONA FECAL HGB CLINIC DETER [place] P[place] QU[place] FECES 1-[place] [address] [facility] MAXILLOFA 6 [facility] W/[place] [address] [facility] [place]OSPHATA 6 CLINIC CLINIC [place] [address] [facility] [place]OSPHATA 6 CLINIC CLINIC SE LABORATO [place] [address] [facility] TRANSVAGI 6 [place] CLA NAL CLINIC PSC COMPUTER- 17400 [facility] HANNA AIDED 6 [facility] DETECTION CLINIC PSC SCREENING MAMMOGRAP HY SCREENING G[address] MAMMOGRAP CLINIC HY MARIO ALBERTO PSC INCL CAD WHEN PERFORMD URNLS DIP [address] [facility] 6 [facility] NONA STICK/TAB CLINIC LET RGNT PSC NON-AUTO W/O MICRSCP BLOOD 04720 RADHA SULTANAMAN OCCULT 5 [place] NONA FECAL HGB CLINIC DETER IA PSC QUAL FECES 1-3 APPL 22191 [facility] RUSSO MODALITY 5 [facility] H[facility]OSP 1/> AREAS INC INC ULTRASOUN D EA 15 MIN APPLICATI 39573 [facility] RUSSO ON 5 [facility]OS[facility] MODALITY INC INC 1/> AREAS HOT/COLD PACKS E-STIM G0283 [facility] RUSSO 1/> AREAS 5 [facility] MEM HOSP OTH THAN INC INC WND CARE PART TX PLAN THERAPEUT 66165 K[facility] RUSSO IC PX 1/> 5 MEM HOS[facility]OSP AREAS INC INC EACH 15 MIN EXERCISES OPHTHALMO 21068 [facility] [place] SCPY 5 [facility], RETINAL P.S.C. DRAWING I&R 1ST DETERMINA 38916 [facility] PINEDA 5 [facility], E STATE P.S.C. THERAPEUT 31633 K[facility]AN RUSSO IC PX 1/> 5 [facility]OS[facility] AREAS INC INC EACH 15 MIN EXERCISES E-STIM G0283 [facility]AN RUSSO 1/> AREAS 5 MEM HOS[facility] MEM HOSP OTH THAN INC INC WND CARE PART TX PLAN APPLICATI 16663 [facility] RUSSO ON 5 [facility] H[facility] MODALITY INC INC 1/> AREAS HOT/COLD PACKS APPL 88817 [facility] RUSSO MODALITY 5 [facility] 1/> AREAS INC INC ULTRASOUN D EA 15 MIN APPL 10481 K[facility]AN KARAN MODALITY 5 [facility] H[facility] 1/> AREAS INC INC ULTRASOUN D EA 15 MIN APPLICATI 16263 K[facility]AN RUSSO ON 5 [facility] MEM [facility]OS[facility] MODALITY INC INC 1/> AREAS HOT/COLD PACKS E-STIM G0283 KARAN KARAN 1/> AREAS 5 MEM HOS[facility] MEM HOSP OTH THAN INC INC WND CARE PART TX PLAN THERAPEUT 78169 KARAN KARAN IC PX 1/> 5 MEM HOS[facility] MEM HOSP AREAS INC INC EACH 15 MIN EXERCISES THERAPEUT 51626 KARAN KARAN IC PX 1/> 5 MEM HOSP MEM HOSP AREAS INC INC EACH 15 MIN EXERCISES E-STIM G0283 KARAN RUSSO 1/> AREAS 5 MEM HOS[facility] MEM HOSP OTH THAN INC INC WND CARE PART TX PLAN APPLICATI 76487 KARAN RUSSO ON 5 MEM HOS[facility] MEM [facility]OSP MODALITY INC INC 1/> AREAS HOT/COLD PACKS APPL 04287 KARAN WHITMANON MODALITY 5 [facility] HOS[facility]OS[facility] 1/> AREAS INC INC ULTRASOUN D EA 15 MIN APPL 11195 [facility] RUSSO MODALITY 5 [facility] H[facility]OSP 1/> AREAS INC INC ULTRASOUN D EA 15 MIN APPLICATI 14742 K[facility]AN RUSSO ON 5 MEM HOS[facility] MEM HOSP MODALITY INC INC 1/> AREAS HOT/COLD PACKS E-STIM G0283 K[facility]AN RUSSO 1/> AREAS 5 MEM HOS[facility] MEM HOSP OTH THAN INC INC WND CARE PART TX PLAN THERAPEUT 71183 K[facility]AN RUSSO IC PX 1/> 5 MEM HOS[facility] MEM HOSP AREAS INC INC EACH 15 MIN EXERCISES PHYSICAL 86548 [facility] RUSSO THERAPY 5 MEM HOS[facility] MEM HOSP EVALUATIO INC INC N OPHTHALMO 17701 [place] SCPY [address] [facility] [place] RETINAL P.S.C. DRAWING I&R 1ST DETERMINA [address]57[address] [facility] [place] TION 5 [facility], E STATE P.S.C. RADEX [address] LUMBOSACR CLINIC AL PSC MINIMUM [address] [facility] N VENOUS 5 CLINIC CLINIC BLOOD LABORATO LABORATO VENIPUNCT URE URNLS DIP [address] [facility] 5 CLINIC CLINIC STICK/TAB LABORATO LABORATO LET REAGENT AUTO MICROSCOP Y LIPID [address] [facility] [facility] PANEL 5 CLINIC CLINIC LABORATO LABORATO SCREENING G020[address] MAMMOGRAP CLINIC HY MARIO ALBERTO PSC INCL CAD WHEN PERFORMD COMPUTER- [address] FUNMI DETECTION CLINIC PSC SCREENING MAMMOGRAP HY CYTP C/V [address] [facility] AUTO THIN 5 CLINIC CLINIC LYR LABORATO LABORATO PREPJ SCR MNL RESCR PHYS GENERAL [address] [facility] 5 CLINIC CLINIC PANEL LABORATO LABORATO Encounters Encounter Start End Date Code Location Performer Type Date OFFICE 91993 RADHA MISHRA OUTPATIEN 7 7 [facility] VISIT CLINIC 25 PSC MINUTES OFFICE 10506 [place] ZORAIDA OUTPATIEN 6 6 JAM JAM T VISIT 40 MINUTES OFFICE 28826 [facility] OUTPATIEN 6 6 [facility] 15 MINUTES OFFICE 26796 RADHA MISHRA OUTPATIEN 6 6 [place] NONA T VISIT CLINIC 15 PSC MINUTES OFFICE 29612 [facility] [place] OUTPATIEN 6 6 [place] CLA T NEW 20 CLINIC MINUTES PSC PERIODIC 86945 RADHA MISHRA PREVENTIV 6 6 [place] NONA E MED EST CLINIC PATIENT PSC 40-64YRS OFFICE 28307 [facility] [place] OUTPATIEN 5 5 [facility], 25 [facility]ES [facility]OSPITAL KAR[facility] - 5 5 [facility] OUTPATIEN INC T OFFICE 30826 [facility] [place] OUTPATIEN 5 [address], MINUTES P.S.C. PERIODIC 73211 [facility] 5 5 [facility] EST CLINIC PATIENT PSC 40-64YRS
--- OUTSIDE RECORDS SUMMARY | 2017-03-02 12:51 | External Medical Summary Rpt ---
Demographics Preferred Language Finnish Marital Status Unknown Sabianist Affiliation Unknown Race Unknown Ethnic Group Unknown Author Author , Organization [employer] Address Unknown Phone Unavailable Purpose Continuity of Care Document - through 2016 Immunization No patient found.
--- OUTSIDE RECORDS SUMMARY | 2017-03-02 12:51 | External Medical Summary Rpt ---
Author Author , Organization [employer] Address Unknown Phone Unavailable Care Team Providers Care Independent Producer Name Role Phone BEITING CLA, BEITING Unavailable Unavailable CLA HERACLIO, HERACLIO Unavailable Unavailable MIR CAREY, Unavailable Unavailable TAD NEWSOME Unavailable Unavailable TAD CASTELLANO, Unavailable Unavailable TAD CASTELLANO [facility] Unavailable Unavailable INC, [facility] Unavailable [facility]available HOSPITAL, [facility], [facility] Unavailable Unavailable [facility], Unavailable Unavailable [facility] Unavailable Unavailable LABORATO, [facility] Un[facility] Unavailable [facility] ZORAIDA AMBROSE, Unavailable Unavailable ZORAIDA AMBROSE, Unavailable Unavailable ZORAIDA AMBROSE [facility] Unavailable Unavailable [facility] Unavailable Unavailable [facility], [facility] Unavailable Unavailable Purpose Continuity of Care Document - 11-10-2014 through 2016 Problems Code Diagnosis DOS Provider Status E559 VITAMIN D 01-02-2017 NEW DEFICIENCY [place] UNSPECIFIED CLINIC [facility] E785 HYPERLIPIDE 01-02-2017 NEW AYAZ [place] UNSPECIFIED CL[facility]IC [facility] [id number] UNSPECIFIED 01-02-2017 NEW ASTHMA [place] UNCOMPLICAT CLINIC [facility] ED R351 NOCTURIA 01-02-2017 NEW [facility] R7989 OTHER SPEC 01-02-2017 NEW ABNORMAL [place] FINDINGS [facility]IC [facility] BLOOD CHEMISTRY Z1231 ENCOUNTER 01-02-2017 NEW SCREENING [place] MAMMO MALIG CLINIC [facility] NEOPLASM BREAST B57479 ULCERATIVE 05-18-2016 [facility] BLEPHARITIS JAM RIGHT UPPER EYELID F93706 OTHER 05-18-2016 [place] CHORIORETIN JAM AL SCARS RIGHT EYE J329 CHRONIC 04-27-2016 [facility] J40 BRONCHITIS 04-27-2016 [facility] ACUTE OR CHRONIC Z1212 ENCOUNTER 02-24-2016 NEW SCREENING [place] MALIGNANT CLINIC [facility] NEOPLASM RECTUM J0190 ACUTE 01-13-2016 NEW SINUSITIS [place] UNSPECIFIED CLINIC [facility] N939 ABNORMAL 12-21-2015 [facility] PSC BLEEDING UNSPECIFIED Z0000 ENCOUNTER 12-18-2015 NEW GEN ADULT [place] MED EXAM CLINIC PSC W/O ABNORMAL FIND 45908 VITREOUS 05-13-2015 [facility] 7242 LUMBAGO 04-27-2015 [facility] V571 OTHER 04-27-2015 [facility] THERAP[facility] INC 2449 UNSPECIFIED 11-10-2014 [facility] HYPOTHYROID LABORATO ISM 2724 OTHER AND 11-10-2014 [place] UNSPECIFIED [facility]IC LABORATO HYPERLIPIDE AYAZ 2859 UNSPECIFIED 11-10-2014 [place] ANEMIA [facility]IN[facility] LAB[facility] V5869 LONG-TERM 11-10-2014 [place] (CURRENT) CLINIC USE OF LABORATO OTHER MEDICATIONS V700 ROUTINE 11-10-2014 [facility] PSC [email or web address]@HEALTH CARE FACL V7612 OTHER 11-10-2014 NEW SCRE[facility]ING [place] MAMMOGRAM CLINIC PSC V762 SCREENING 11-10-2014 [place] FOR [facility] MALIGNANT LABORATO NEOPLASM OF THE [...] NT E HI AN A IN C IA 00 03 04 10 5 00 EA [...] ve LO 37 20 20 46 DE IA 50 17 17 94 AM 1 21 PH AR 20 MA CY MG OF TA CY BL NT ET HI AN A IN C WI 00 03 04 30 30 00 EA [...] 47 DE ZA 11 17 17 19 IA 0 49 PH IN AR E MA [...] LE HI R AN A IN C WI 00 02 03 30 30 00 EA [...] ve LO 37 20 20 46 DE IA 50 17 17 94 AM 1 21 [...] ET NT HI AN A IN C WI 00 01 02 30 30 00 EA [...] ve LO 37 20 20 46 DE IA 50 17 17 94 AM 1 21 [...] 47 DE ZA 11 17 17 19 IA 0 49 PH IN AR E MA [...] ve LO 37 20 20 46 DE IA 50 16 17 94 AM 1 21 PH AR 20 MA CY MG OF TA CY BL NT ET HI AN A IN C WI 00 12 01 30 30 00 EA [...] Procedure DOS Code Location Performer Comment CHOLESTER 32229 [facility] OL 7 CLINIC CLINIC SERUM/WHO LABORATO LABORATO LE BLOOD TOTAL SCREENING G0202 [address] MAMMOGRAP CLINIC HY MARIO ALBERTO PSC INCL CAD WHEN PERFORMD RADIOLOGI 16365 [facility] EXAM 7 [place] CHEST 2 CLINIC VIEWS PSC FRONTAL&L ATERAL COMPREHEN 56101 [facility] SIVE 7 CLINIC CLINIC METABOLIC LABORATO LABORATO PANEL 25 88909 [facility] HYDROXY 7 CLINIC CLINIC INCLUDES LABORATO LABORATO FRACTIONS IF PERFORMED OPHTHALMO 84507 [facility] [place] SCPY 6 JAM JAM EXTENDED RETINAL DRAWING I&R 1ST DETERMINA 92272 [facility] [place] TION 6 JAM JAM REFRACTIV E STATE BLOOD 96072 NEW [place]AD OCCULT 6 [place] NONA FECAL HGB CLINIC DETER [place] PSC QUAL FECES 1-3 [place] [address] [facility] 6 [facility] CIAL W/[place] [address] [facility] [place] [facility] 6 CLINIC CLIN[place] [address] [facility] [place] [facility] 6 CLINIC CLINIC SE LABORATO [place] [address] [place] TRANSVAGI 6 [place] CLA NAL CLINIC PSC COMPUTER- 15098 [facility] HNANA AIDED 6 [facility] DETECTION CLINIC PSC SCREENING MAMMOGRAP HY SCREENING G[address] MAMMOGRAP CLINIC HY MARIO ALBERTO PSC INCL CAD WHEN PERFORMD URNLS DIP 35481 [facility] 6 [facility] NONA STICK/TAB CLINIC LET RGNT PSC NON-AUTO W/O MICRSCP BLOOD 55503 RADHA SULTANAMAN OCCULT 5 [place] NONA FECAL HGB CLINIC DETER IA PSC QUAL FECES 1-3 APPL 52599 [facility] R[facility]SO MODALITY 5 [facility] 1/> AREAS INC INC ULTRASOUN D EA 15 MIN APPLICATI 15414 [facility] RUSSO ON 5 [facility]OS[facility] MODALITY INC INC 1/> AREAS HOT/COLD PACKS E-STIM G0283 [facility] RUSSO 1/> AREAS 5 [facility] HOSP OTH THAN INC INC WND CARE PART TX PLAN THERAPEUT 50145 [facility] RUSSO IC PX 1/> 5 [facility] HOS[facility]OSP AREAS INC INC EACH 15 MIN EXERCISES OPHTHALMO 41961 [facility] [place] SCPY 5 [facility], RETINAL P.S.C. DRAWING I&R 1ST DETERMINA 32132 [facility] PINEDA 5 [facility], E STATE P.S.C. THERAPEUT 82463 [facility] RUSSO IC PX 1/> 5 [facility] MEM [facility]OSP AREAS INC INC EACH 15 MIN EXERCISES E-STIM G0283 [facility] RUSSO 1/> AREAS 5 [facility] H[facility] MEM HOSP OTH THAN INC INC WND CARE PART TX PLAN APPLICATI 16738 [facility] RUSSO ON 5 [facility]OS[facility] MODALITY INC INC 1/> AREAS HOT/COLD PACKS APPL 93823 K[facility]AN RUSSO MODALITY 5 [facility] H[facility] 1/> AREAS INC INC ULTRASOUN D EA 15 MIN APPL 11150 KARAN KARAN MODALITY 5 [facility] HOS[facility]OS[facility] 1/> AREAS INC INC ULTRASOUN D EA 15 MIN APPLICATI 30588 K[facility] RUSSO ON 5 [facility]OS[facility]OS[facility] MODALITY INC INC 1/> AREAS HOT/COLD PACKS E-STIM G0283 KARAN KARAN 1/> AREAS 5 MEM HOS[facility] MEM HOSP OTH THAN INC INC WND CARE PART TX PLAN THERAPEUT 22145 KARAN KARAN IC PX 1/> 5 [facility]OS[facility]OS[facility] AREAS INC INC EACH 15 MIN EXERCISES THERAPEUT 10517 KARAN KARAN IC PX 1/> 5 MEM HOS[facility] MEM HOSP AREAS INC INC EACH 15 MIN EXERCISES E-STIM G0283 K[facility]AN RUSSO 1/> AREAS 5 MEM HOS[facility] MEM HOSP OTH THAN INC INC WND CARE PART TX PLAN APPLICATI 95628 K[facility]AN RUSSO ON 5 [facility] HOS[facility]OS[facility] MODALITY INC INC 1/> AREAS HOT/COLD PACKS APPL 84767 KARAN WHITMANON MODALITY 5 MEM HOSP [facility]OS[facility] 1/> AREAS INC INC ULTRASOUN D EA 15 MIN APPL 15282 K[facility]AN RUSSO MODALITY 5 MEM HOS[facility]OSP 1/> AREAS INC INC ULTRASOUN D EA 15 MIN APPLICATI 43708 K[facility] RUSSO ON 5 [facility] HOS[facility]OSP MODALITY INC INC 1/> AREAS HOT/COLD PACKS E-STIM G0283 K[facility] RUSSO 1/> AREAS 5 MEM HOS[facility] MEM HOSP OTH THAN INC INC WND CARE PART TX PLAN THERAPEUT 55914 K[facility] RUSSO IC PX 1/> 5 [facility] HOS[facility] MEM HOSP AREAS INC INC EACH 15 MIN EXERCISES PHYSICAL 76068 K[facility] RUSSO THERAPY 5 MEM HOS[facility] MEM HOSP EVALUATIO INC INC N OPHTHALMO 75594 [place] SCPY 5 EYE [facility], RETINAL P.S.C. DRAWING I&R 1ST DETERMINA 19815 [facility] [place] TION 5 [facility], E STATE P.S.C. RADEX [address] LUMBOSACR CLINIC AL PSC MINIMUM 4 VIEWS COLLECTIO 00962 [facility] N VENOUS 5 CLINIC CLINIC BLOOD LABORATO LABORATO VENIPUNCT URE URNLS DIP 59518 [facility] 5 CLINIC CLINIC STICK/TAB LABORATO LABORATO LET REAGENT AUTO MICROSCOP Y LIPID 15482 [facility] PANEL 5 CLINIC CLINIC LABORATO LABORATO SCREENING G020[address] MAMMOGRAP CLINIC HY MARIO ALBERTO PSC INCL CAD WHEN PERFORMD COMPUTER- [address] FUNMI DETECTION CLINIC PSC SCREENING MAMMOGRAP HY CYTP C/V 67968 [facility] AUTO THIN 5 CLINIC CLINIC LYR LABORATO LABORATO PREPJ SCR MNL RESCR PHYS GENERAL 28855 [facility] 5 CLINIC CLINIC PANEL LABORATO LABORATO Encounters Encounter Start End Date Code Location Performer Type Date OFFICE 86713 RADHA MISHRA OUTPATIEN 7 7 [facility] VISIT CLINIC 25 PSC MINUTES OFFICE 58602 [place] ZORAIDA OUTPATIEN 6 6 JAM JAM T VISIT 40 MINUTES OFFICE 56567 [facility] OUTPATI[facility] 6 6 [facility] 15 MINUTES OFFICE 45010 RADHA MISHRA OUTPATIEN 6 6 [place] NONA T VISIT CLINIC 15 PSC MINUTES OFFICE 49811 [place] OUTPATIEN 6 6 [place] CLA T NEW 20 CLINIC MINUTES PSC PERIODIC 87309 RADHA MISHRA PREVENTIV 6 6 [place] NONA E MED EST CLINIC PATIENT PSC 40-64YRS OFFICE 69164 [facility] [place] OUTPATIEN 5 5 [facility] - 5 5 [facility] OUTPATIEN INC T OFFICE 72240 [facility] [place] 5 [address], MINUTES P.S.C. PERIODIC 74820 [facility] 5 5 [facility] EST CLINIC PATIENT PSC 40-64YRS
--- OUTSIDE RECORDS SUMMARY | 2017-03-02 12:51 | External Medical Summary Rpt ---
Demographics Preferred Language Nicaraguan Marital Status Unknown Caodaism Affiliation Unknown Race Unknown Ethnic Group Unknown Author Author , Organization [employer] Address Unknown Phone Unavailable Purpose Continuity of Care Document - through 2016 Immunization No patient found.
[2017-03-02 13:48] VITALS: BP 132/65
--- NOTE | 2017-03-02 14:59 | RADIOLOGY REPORT PS360 ---
CHEST(2 VIEWS-NOT PORTABLE) HISTORY: SOA, COUGH ORDERING PHYSICIAN: Asad Tabor MD PATIENT AGE: 56 years COMPARISON: None available FINDINGS: The cardiomediastinal silhouette and pulmonary vascularity are within normal limits. There is increased density in the right perihilar region which may be related to perihilar infiltrate/pneumonia. Follow-up recommended to confirm resolution. There is some mild hyperinflation with attenuation of the peripheral pulmonary vessels. There is some blunting of the left CP angle The remaining lungs are clear.. No acute bony abnormalities. IMPRESSION: 1. Right perihilar consolidation consistent with pneumonia. Recommend follow until clear as a mass lesion could have a similar appearance. 2. COPD.
== END 2017-03-02 13:49 | disposition home or self-care (01) ==
LOC: ER 11:45
PROVIDERS: Emergency Medicine
DX: J44.1 Chronic obstructive pulmonary disease with (acute) exacerbation (principal); Z72.0 Tobacco use; F41.9 Anxiety disorder, unspecified